=== PATIENT | female | born 1965 | race Caucasian/White ===

== ENCOUNTER 2020-03-05 12:09 | Day surgery (SDC) | payer OTHER ==
[~2020-03-05] VITALS: Ht 154.9 cm; Wt 70.0 kg
[~2020-03-05 12:09] MED LIST: SERTRALINE HCL100 MG PO
--- NOTE | 2020-03-05 14:44 | NUR ---
03/05/20 1444 Linda Meneses 1440- PT ARRIVES TO PACU DROWSY BUT RESPONSIVE TO VERBAL STIMULI. RESP EVEN AND UNLABORED. PT DENIES NAUSEA OR PAIN.
--- NOTE | 2020-03-06 11:54 | OR ---
[facility] [address] [place] [address] Signed DATE OF OPERATION: 03/05/2020 SURGEON: Jasmina Marvin MD PREOPERATIVE DIAGNOSIS: Colon screening. POSTOPERATIVE DIAGNOSIS: Sigmoid diverticulosis. PROCEDURE: Total colonoscopy to cecum. ANESTHESIA: Intravenous sedation with fentanyl 100 mcg and Versed 7 mg. INDICATION: This 54-year-old white woman is a patient of Dr. Kaitlynn Benavides in [place]. She is referred for screening colonoscopy. She has no family history of colon cancer nor symptoms of bleeding diarrhea or constipation. She understands the risks of bleeding, infection, perforation, missed lesions, and other unforeseen complications and wished to proceed. FINDINGS: The prep was excellent. Complete colonoscopy was undertaken to the cecum without question. She had diverticula of the sigmoid and left colon to minor degree. There was an area that initially was suggestive of a small polyp at the splenic flexure, which was later thought unlikely to be rather adherent mucus as the lesion could not be found to be excised. There were no other findings of concern. DESCRIPTION OF PROCEDURE: The patient was brought to the endoscopy suite and placed in lateral decubitus position, given intravenous sedation to the point of slurred speech and nystagmus. Digital rectal examination was normal. The Olympus video colonoscope was passed in the rectum and manipulated throughout the colon noting diverticular change of the sigmoid and left colon. Scope was ultimately advanced to the cecum. Ileocecal valve and appendiceal orifice were normal. Scope was withdrawn from that point and examination undertaken showed no sign of abnormality to the area of the splenic flexure where initially it was thought to be a very small and Electronically Signed By: JASMINA MARVIN MD 03/06/20 1154 PATIENT NAME: BRENNA GRAHAM OPERATIVE REPORT DATE OF : 69 REPORT #: [id number] PHYSICIAN: JASMINA MARVIN MD PCP: KAITLYNN BENAVIDES MD REPORT IS CONFIDENTIAL AND NOT TO BE RELEASED WITHOUT AUTHORIZATION [facility] [address] [place], [place] [address] Signed subtle polyp, but with manipulations of the scope, the lesion disappeared and likely was adherent mucus only. Considerable effort was made to re-examine and find the lesion, but it was nowhere to be found, therefore is either very small inconsequential polyp or adherent mucus after all. The scope was then withdrawn more fully and examination showed only the diverticular changes of the left and sigmoid colon. The rectum was normal. Scope was removed. The patient was taken to the recovery room in good condition. CONCLUDING DIAGNOSIS: Diverticulosis. PLAN: Recommend repeat colonoscopy in 5 years based on the minimal finding not affirmed as a polyp at the splenic flexure, sooner if symptoms should develop include bleeding, diarrhea, or constipation. MD MYRIAM Vaz/KEVIN /[id number] cc: Kaitlynn Benavides MD Copies: KAITLYNN BENAVIDES MD ~ Electronically Signed By: JASMINA MARVIN MD 03/06/20 1154 PATIENT NAME: BRENNA GRAHAM OPERATIVE REPORT DATE OF : 69 REPORT #: [id number] PHYSICIAN: JASMINA MARVIN MD PCP: KAITLYNN BENAVIDES MD REPORT IS CONFIDENTIAL AND NOT TO BE RELEASED WITHOUT AUTHORIZATION
== END 2020-03-05 15:18 | disposition home or self-care (01) ==
LOC: DS 12:09 → OPS 12:09 → DS 14:00 → OPS 14:00
PROVIDERS: ATTEND Surgery
PROC: 0DJD8ZZ Inspection of Lower Intestinal Tract, Via Natural or Artificial Opening Endoscopic (ICD-10-PCS; principal; 2020-03-05 14:00)
DX: Z12.11 Encounter for screening for malignant neoplasm of colon (principal); K57.30 Diverticulosis of large intestine without perforation or abscess without bleeding; F41.9 Anxiety disorder, unspecified; Z79.899 Other long term (current) drug therapy
CPT/HCPCS: 99153; G0500; J2250; J3010; J7121